=== PATIENT | female | born 1945 | race American Indian/Alaskan Native ===

== ENCOUNTER 2016-11-15 11:11 | Outpatient (CLI) | payer OTHER, MEDICARE ==
--- NOTE | 2016-11-15 12:27 | XRay Report ---
Thoracic spine, 3 views History: Back pain. Findings: Osteopenia is evident. An inferior endplate deformity is identified at T11 with 25% loss of height. This appears to be chronic. The remaining thoracic vertebra are normal height and alignment. Mild multilevel degenerative disc disease is noted. Posterior ribs are intact. Impression: Osteopenia. Compression deformity at T11 which is probably chronic. Mild spondylosis.
--- NOTE | 2016-11-19 09:36 | XRay Report ---
LUMBOSACRAL SPINE, 3 VIEWS: History: Back pain Findings: Osteopenia is evident. There is a subtle superior endplate deformity at L1 which is of indeterminate age. Loss of height is less than 10%. This may represent a chronic fracture. The remaining lumbar vertebra are normal height and alignment. There is moderate multilevel degenerative change. L5-S1 is the most affected level. The sacrum and SI joints are grossly intact. Impression: Osteopenia. Subtle L1 superior endplate deformity of indeterminate age. Please correlate with the patient. If further evaluation is needed, MRI lumbar spine or CT lumbar spine would provide the most information.
== END 2016-11-15 11:12 | disposition home or self-care (01) ==
LOC: SPVIMAG 11:11
PROVIDERS: ATTEND Internal Medicine
DX: M51.14 Intervertebral disc disorders with radiculopathy, thoracic region (principal); M47.894 Other spondylosis, thoracic region; M47.27 Other spondylosis with radiculopathy, lumbosacral region; M85.88 Other specified disorders of bone density and structure, other site; M43.8X4 Other specified deforming dorsopathies, thoracic region; M43.8X6 Other specified deforming dorsopathies, lumbar region
CPT/HCPCS: 72072; 72100